=== PATIENT | female | born 1950 | race Caucasian/White ===

== ENCOUNTER 2019-04-06 06:18 | Day surgery (SDC) | payer MEDICARE ==
[~2019-04-06] VITALS: Ht 152.4 cm; Wt 54.0 kg
[~2019-04-06 06:18] MED LIST: ALEN70TA3 PO; AMLO5TAB4 PO; ASPI-496 PO; ATOR80TA PO; CARV6.2512 PO; CLOP75TA52 PO; GABA300C10 PO; ISOS30TA8 PO; OMEP20TA62 PO; SERT50TA PO; TRAM-47 PO
[2019-04-06] MEDS ORDERED: BUPIVACAINE/PF 0.5% ONE (06:26)
[2019-04-06] MEDS ORDERED: EPINEPHRINE 1 MG/ML, 1ML ONE (06:26)
[2019-04-06 07:17] VITALS: BP 139/78
[2019-04-06] MEDS ORDERED: ACETAMINOPHEN 500 MG TABLET ONE (07:28)
[2019-04-06] MEDS ORDERED: GABAPENTIN 300 MG CAPSULE ONE (07:28)
[2019-04-06] MEDS ORDERED: LACTATED RINGERS 1,000 ML IV SCH (07:38)
[2019-04-06] MEDS ORDERED: FENTANYL PF 100 MCG/2ML ONE ×2 (07:51→08:53)
[2019-04-06] MEDS ORDERED: HYDROmorphone 2 MG/ML, 1ML IVPush PRN (08:00)
[2019-04-06] MEDS ORDERED: METOPROLOL 1 MG/ML, 5ML IV PRN (08:00)
[2019-04-06] MEDS ORDERED: OXYcodone 5 MG/5 ML ORAL.SOL UDC PO PRN (08:00)
[2019-04-06] MEDS ORDERED: HALOPERIDOL 5 MG/ML IV PRN (08:00)
[2019-04-06] MEDS ORDERED: GABAPENTIN 300 MG CAPSULE PO ONE (08:00)
[2019-04-06] MEDS ORDERED: hydrALAzine 20 MG/ML, 1ML IV PRN (08:00)
[2019-04-06] MEDS ORDERED: FENTANYL PF 100 MCG/2ML IV PRN (08:00)
[2019-04-06] MEDS ORDERED: PROCHLORPERAZINE 5 MG/ML, 2ML IV PRN (08:00)
[2019-04-06] MEDS ORDERED: MEPERIDINE/PF 25MG/0.5ML IVPush PRN (08:00)
[2019-04-06] MEDS ORDERED: DIPHENHYDRAMINE 50 MG/ML, 1ML IVPush PRN (08:00)
[2019-04-06] MEDS ORDERED: PROMETHAZINE 25 MG/ML, 1ML IV PRN (08:00)
[2019-04-06] MEDS ORDERED: LABETALOL 5MG/ML, 20ML IV PRN (08:00)
[2019-04-06] MEDS ORDERED: ACETAMINOPHEN 500 MG TABLET PO ONE (08:00)
[2019-04-06] MEDS ORDERED: ONDANSETRON 2MG/ML, 2ML ONE (08:08)
[2019-04-06] MEDS ORDERED: ROCURONIUM 10 MG/ML,10ML ONE (08:08)
[2019-04-06] MEDS ORDERED: DEXAMETHASONE 4 MG/ML, 1ML ONE (08:08)
[2019-04-06] MEDS ORDERED: CEFAZOLIN 1,000 MG ONE (08:08)
[2019-04-06] MEDS ORDERED: SUCCINYLCHOLINE 20 MG/ML, 10ML ONE (08:08)
[2019-04-06] MEDS ORDERED: PROPOFOL 10 MG/ML, 20ML ONE (08:08)
[2019-04-06] MEDS ORDERED: LOSARTAN PO (08:18)
[2019-04-06] MEDS ORDERED: HUMALOG (08:18)
[2019-04-06] MEDS ORDERED: INSULIN (08:18)
[2019-04-06 08:51] LABS: HEMOGLOBIN A1C 11.3 % (4.2-6.3)
[2019-04-06] MEDS ORDERED: OMNIPAQUE 350 MG/ML, 50 ML BOTTLE ONE (10:34)
== END 2019-04-06 11:35 | disposition home or self-care (01) ==
LOC: OUT 06:18
PROVIDERS: ATTEND Orthopaedic Surgery Orthopaedic Surgery of the Spine
DX: M80.08XA Age-related osteoporosis with current pathological fracture, vertebra(e), initial encounter for fracture (principal); M54.9 Dorsalgia, unspecified; I25.10 Atherosclerotic heart disease of native coronary artery without angina pectoris; I25.2 Old myocardial infarction; I10 Essential (primary) hypertension; K21.9 Gastro-esophageal reflux disease without esophagitis; E78.5 Hyperlipidemia, unspecified; F41.8 Other specified anxiety disorders; E13.65 Other specified diabetes mellitus with hyperglycemia; F17.290 Nicotine dependence, other tobacco product, uncomplicated; Z79.4 Long term (current) use of insulin; Z79.899 Other long term (current) drug therapy; Z91.040 Latex allergy status; Z88.0 Allergy status to penicillin; Z88.8 Allergy status to other drugs, medicaments and biological substances; Z91.018 Allergy to other foods; Z95.5 Presence of coronary angioplasty implant and graft
CPT/HCPCS: 22513; 72072; 82962; 83036; 88307; 88311; C1713; J0171; J0330; J0690; J1100; J2405; J2704; J3010; J7120; Q9967